=== PATIENT | male | born 1930 | race Caucasian/White ===

== ENCOUNTER 2018-05-23 11:10 | Day surgery (SDC) | payer MEDICARE, BC ==
[~2018-05-23 11:10] MED LIST: Cyclopentolate 1% Opth Drop 2 ML BOT FS SCH; Fluorouracil 100 MG, Enoxaparin Sodium 25 MG, EPINEPHrine 0.3 MG in Ophthalmic Irrigati... FS SCH; Phenylephrine 2.5% Ophth Soln 5 ML BOT FS SCH
[2018-05-23] MEDS ORDERED: Phenylephrine 2.5% Ophth Soln 5 ML BOT ONE (11:27)
[2018-05-23] MEDS ORDERED: Cyclopentolate 1% Opth Drop 2 ML BOT ONE (11:28)
[2018-05-23] MEDS ORDERED: Lidocaine 4% PF 5 ML AMP ONE (11:47)
[2018-05-23] MEDS ORDERED: Lidocaine 1% PF 5 ML VIAL ONE ×2 (11:47)
[2018-05-23] MEDS ORDERED: PROPOFOL 200 MG/20 ML VIAL ONE (11:47)
[2018-05-23] MEDS ORDERED: Triamcinolone 40 MG/ML VIAL ONE (11:47)
[2018-05-23] MEDS ORDERED: CEFAZOLIN 1 GM VIAL ONE (11:47)
[2018-05-23] MEDS ORDERED: Maxitrol 0.1% Opth Oint 3.5 GM TUBE ONE (11:47)
[2018-05-23] MEDS ORDERED: Bupivacaine 0.75% 10 ML AMP ONE (11:47)
[2018-05-23] MEDS ORDERED: Fentanyl 100 MCG/2 ML VIAL ONE (12:45)
[2018-05-23] MEDS ORDERED: Midazolam HCl 2 mg/2 ml Vial ONE (12:45)
[2018-05-23] MEDS ORDERED: PROPOFOL 20 ML ONE (12:45)
--- NOTE | 2018-05-24 14:15 | OP ---
DATE OF PROCEDURE: 05/23/2018 PREOPERATIVE DIAGNOSIS: Rhegmatogenous retinal detachment, right eye. POSTOPERATIVE DIAGNOSIS: Rhegmatogenous retinal detachment, right eye. PROCEDURES PERFORMED: Pars plana vitrectomy and retinal detachment repair. PROCEDURE IN DETAIL: The patient was identified in the preoperative holding area. Appropriate informed consent for the planned surgical procedure on the right eye had been obtained. The patient was transported to the operative suite, appropriate cardiopulmonary monitoring as established. Local anesthesia was obtained using retrobulbar modified Van Lint lid block using 50:50 mixture of 4% lidocaine and 0.75% bupivacaine. The patient was prepped and draped in the usual sterile manner for ophthalmic surgery, right eye. Lid speculum was placed in the right eye. A 25-gauge trocar was placed through the conjunctiva and sclera superotemporally, inferotemporally, and superonasally. Infusion line was placed inferotemporally and light pipe vitreous cutter was placed in the eye. Core vitrectomy was performed. Attention was turned to the tear supratemporaly. Traction was removed from the tear. Posterior drained retinotomy was created along the 10 o'clock meridian at the supratemporal arcade. Complete air-fluid exchange was performed. 360 laser was placed using Endolaser delivery device, 28% sulfur hexafluoride gas was infused into the eye. Superior sclerotomies were suture closed. Retrobulbar Kenalog and subconjunctival Ancef were placed. Atropine antibiotic ointment was placed. The eye was patched and shielded. The patient was taken to the postoperative recovery unit in good condition having suffered no immediate perioperative complications. The patient was instructed to keep the patch and shield on, avoid lifting and bending. Followup appointment with Dr. Diego. Job ID: [id number]
== END 2018-05-23 14:50 | disposition home or self-care (01) ==
LOC: SDC 11:10
PROVIDERS: ATTEND Ophthalmology Retina Specialist
PROC: 08T43ZZ Resection of Right Vitreous, Percutaneous Approach (ICD-10-PCS; principal; 2018-05-23)
PROC: 08QE3ZZ Repair Right Retina, Percutaneous Approach (ICD-10-PCS; 2018-05-23)
DX: H33.011 Retinal detachment with single break, right eye (principal); E66.9 Obesity, unspecified
CPT/HCPCS: 36416; 67025; J0171; J0690; J1650; J2001; J2250; J2704; J3010; J3301; J3490; J9190